=== PATIENT | male | born 1965 | race Caucasian/White ===

== ENCOUNTER → 2016-10-08 | Outpatient (CLI) | payer OTHER ==
[2016-10-08 08:37] LABS: CHLORIDE,CL 112 mmol/L (98-110); SODIUM,NA 144 mmol/L (136-146)
== END ==
LOC: MW.CHRC 07:33
PROVIDERS: ATTEND Family Medicine
DX: R68.82 Decreased libido (principal)
CPT/HCPCS: 80053; 80061; 83001; 83002; 84402; 84403; 84439; 84443; 85025; G0103; 36415

== ENCOUNTER 2017-10-31 06:56 | Emergency (ER) | payer OTHER ==
[2017-10-31] MEDS ORDERED: Ondansetron 4 MG/2 ML SDV IVPUSH ONE ×2 (07:22→07:37)
[2017-10-31] MEDS ORDERED: Sodium Chloride 0.9% 10 ML Syringe FLUSH PRN (07:37)
[2017-10-31] MEDS ORDERED: Sodium Chloride 0.9% 2.5 ML Syringe FLUSH PRN (07:37)
[2017-10-31] MEDS ORDERED: Sodium Chloride 0.9% 1,000 ML IV ONE (07:37)
[2017-10-31] MEDS ORDERED: Morphine 4 MG/ML Syringe IVPUSH ONE (07:37)
--- NOTE | 2017-10-31 07:51 | EDM.PDOC ---
ED HPI GENERAL MEDICAL PROBLEM - General Chief Complaint: Headache Stated Complaint: HEADACHE/NUMBNESS RT LEG Time Seen by Provider: 10/31/17 07:34 - History of Present Illness INITIAL COMMENTS - FREE TEXT/NARRATIVE: HISTORY AND PHYSICAL: History of present illness: Patient 51-year-old white male presents with concern of headache this started last night frontal he also complained of some anxiety and associated chest pain this is vaguely described without associated shortness of breath diaphoresis nausea or vomiting he also states he felt like his right right foot was numb yesterday when this occurred he denies any numbness weakness at this time there' s been no visual disturbance was no trauma. Review of systems: As per history of present illness and below otherwise all systems reviewed and negative. Past medical history: As per history of present illness and as reviewed below otherwise noncontributory. Surgical history: As per history of present illness and as reviewed below otherwise noncontributory. Social history: No reported history of drug or alcohol abuse. Family history: As per history of present illness and as reviewed below otherwise noncontributory. Physical exam: HEENT: Atraumatic, normocephalic, pupils reactive, negative for conjunctival pallor or scleral icterus, mucous membranes moist, throat clear, neck supple, nontender, trachea midline. Lungs: Clear to auscultation, breath sounds equal bilaterally, chest nontender. Heart: S1S2, regular, negative for clicks, rubs, or JVD. Abdomen: Soft, nondistended, nontender. Negative for masses or hepatosplenomegaly. Negative for costovertebral tenderness. Pelvis: Stable nontender. Genitourinary: Deferred. Rectal: Deferred. Extremities: Atraumatic, negative for cords or calf pain. Neurovascular unremarkable. Neuro: Awake, alert, oriented. Cranial nerves II through XII unremarkable. Cerebellum unremarkable. Motor and sensory unremarkable throughout. Exam nonfocal. Diagnostics: CBC CMP troponin PT/INR chest x-ray EKG CT brain urine drug screen Therapeutics: IV O2 monitor morphine sulfate 2 mg IV Zofran 4 mg IV Impression: #1 cephalgia #2 atypical chest pain Definitive disposition and diagnosis as appropriate pending reevaluation and review of above. head Pain Score (Numeric/FACES): 9 - Related Data Allergies Allergy/AdvReac Type Severity Reaction Status Date / Time No Known Allergies Allergy Verified 10/31/17 07:07 Home Meds: Home Meds . [No Known Home Meds] 10/31/17 [History] Past Medical History - Past Health History Medical/Surgical History: Denies Medical/Surgical History Social & Family History - Family History Family Medical History: Noncontributory - Tobacco Use Smoking Status *Q: Current Every Day Smoker Years of Tobacco use: 10 Packs/Tins Daily: 1 - Recreational Drug Use Recreational Drug Use: No ED ROS GENERAL - Review of Systems Review Of Systems: ROS reveals no pertinent complaints other than HPI. ED EXAM, GENERAL - Physical Exam Exam: See Below (See dictation) Course - Vital Signs Last Recorded V/S: Last Vital Signs Temp 36.7 C 10/31/17 06:56 Pulse 86 10/31/17 06:56 Resp 18 10/31/17 06:56 BP 166/95 H 10/31/17 06:56 Pulse Ox 98 10/31/17 06:56 - Orders/Labs/Meds Orders: Active Orders 24 hr Category Date Time Status Cardiac Monitoring [RC] . DIRECTED Care 10/31/17 07:34 Active EKG Documentation Completion [RC] STAT Care 10/31/17 07:34 Active Pulse Oximetry [RC] ASDIRECTED Care 10/31/17 07:35 Active Chest 1V Frontal [CR] Stat Exams 10/31/17 07:37 Ordered Head wo Cont [CT] Stat Exams 10/31/17 07:37 Ordered COMPREHENSIVE METABOLIC PN,CMP [CHEM] Stat Lab 10/31/17 07:52 Received DRUG SCREEN, URINE [URCHEM] Stat Lab 10/31/17 07:36 Ordered TROPONIN I [CHEM] Stat Lab 10/31/17 07:52 Received UA W/MICROSCOPIC [URIN] Stat Lab 10/31/17 07:36 Ordered Sodium Chloride 0.9% [Normal Saline] 1,000 ml Med 10/31/17 07:37 Active IV STAT Sodium Chloride 0.9% [Saline Flush] Med 10/31/17 07:37 Active 10 ml FLUSH ASDIRECTED PRN Sodium Chloride 0.9% [Saline Flush] Med 10/31/17 07:37 Active 2.5 ml FLUSH ASDIRECTED PRN Saline Lock Insert [OM.PC] Stat Oth 10/31/17 07:34 Ordered Medication Orders Sodium Chloride (Normal Saline) 1,000 mls @ 999 mls/hr IV STAT ONE Stop: 10/31/17 08:37 Last Admin: 10/31/17 07:55 Dose: 999 mls/hr Sodium Chloride (Saline Flush) 10 ml FLUSH ASDIRECTED PRN PRN Reason: Keep Vein Open Last Admin: 10/31/17 07:57 Dose: 10 ml Sodium Chloride (Saline Flush) 2.5 ml FLUSH ASDIRECTED PRN PRN Reason: Keep Vein Open Labs: Laboratory Tests 10/31/17 10/31/17 10/31/17 Range/Units 07:52 07:52 07:52 WBC 18.52 H (4.0-11.0) K/uL RBC 6.03 H (4.50-5.90) M/uL Hgb 17.9 H (13.0-17.0) g/dL Hct 50.5 H (38.0-50.0) % MCV 83.7 (80.0-98.0) fL MCH 29.7 (27.0-32.0) pg MCHC 35.4 (31.0-37.0) g/dL RDW Std Deviation 42.9 (28.0-62.0) fl RDW Coeff of Minh 14 (11.0-15.0) % Plt Count 200 (150-400) K/uL MPV 9.20 (7.40-12.00) fL Neut % (Auto) 90.7 H (48.0-80.0) % Lymph % (Auto) 5.6 L (16.0-40.0) % [place] % (Auto) 3.5 (0.0-15.0) % Eos % (Auto) 0.1 (0.0-7.0) % Baso % (Auto) 0.1 (0.0-1.5) % Neut # (Auto) 16.8 H (1.4-5.7) K/uL Lymph # (Auto) 1.0 (0.6-2.4) K/uL [place] # (Auto) 0.7 (0.0-0.8) K/uL Eos # (Auto) 0.0 (0.0-0.7) K/uL Baso # (Auto) 0.0 (0.0-0.1) K/uL Nucleated RBC % 0.0 /100WBC Nucleated RBCs # 0 K/uL INR 1.16 ABG Carboxyhemoglobin 1.5 (0-15) % Meds: Medications Generic Name Dose Route Start Last Admin Trade Name Freq PRN Reason Stop Dose Admin Sodium Chloride 1,000 mls @ 999 mls/hr 10/31/17 07:37 10/31/17 07:55 Normal Saline IV 10/31/17 08:37 999 mls/hr STAT ONE Administration Sodium Chloride 10 ml 10/31/17 07:37 10/31/17 07:57 Saline Flush FLUSH 10 ml ASDIRECTED PRN Administration Keep Vein Open Sodium Chloride 2.5 ml 10/31/17 07:37 Saline Flush FLUSH ASDIRECTED PRN Keep Vein Open Discontinued Medications Generic Name Dose Route Start Last Admin Trade Name Kurtis PRN Reason Stop Dose Admin Morphine Sulfate 2 mg 10/31/17 07:37 10/31/17 07:56 Morphine IVPUSH 10/31/17 07:38 2 mg ONETIME ONE Administration Ondansetron HCl 4 mg 10/31/17 07:37 10/31/17 07:56 Zofran IVPUSH 10/31/17 07:38 4 mg ONETIME ONE Administration Departure - Departure Time of Disposition: 08:16 Disposition: DC/Tfer to Acute Hospital 02 Condition: Serious Clinical Impression: Intracranial hemorrhage - Discharge Information Referrals: PCP,None [Primary Care Provider] - Forms: ED Department Discharge - My Orders Last 24 Hours: My Active Orders 10/31/17 07:34 Cardiac Monitoring [RC] . DIRECTED EKG Documentation Completion [RC] STAT Saline Lock Insert [OM.PC] Stat 10/31/17 07:35 Pulse Oximetry [RC] ASDIRECTED 10/31/17 07:36 DRUG SCREEN, URINE [URCHEM] Stat UA W/MICROSCOPIC [URIN] Stat 10/31/17 07:37 Chest 1V Frontal [CR] Stat Head wo Cont [CT] Stat Sodium Chloride 0.9% [Normal Saline] 1,000 ml IV STAT Sodium Chloride 0.9% [Saline Flush] 10 ml FLUSH ASDIRECTED PRN Sodium Chloride 0.9% [Saline Flush] 2.5 ml FLUSH ASDIRECTED PRN 10/31/17 07:52 COMPREHENSIVE METABOLIC PN,CMP [CHEM] Stat TROPONIN I [CHEM] Stat - Assessment/Plan Last 24 Hours: My Active Orders 10/31/17 07:34 Cardiac Monitoring [RC] . DIRECTED EKG Documentation Completion [RC] STAT Saline Lock Insert [OM.PC] Stat 10/31/17 07:35 Pulse Oximetry [RC] ASDIRECTED 10/31/17 07:36 DRUG SCREEN, URINE [URCHEM] Stat UA W/MICROSCOPIC [URIN] Stat 10/31/17 07:37 Chest 1V Frontal [CR] Stat Head wo Cont [CT] Stat Sodium Chloride 0.9% [Normal Saline] 1,000 ml IV STAT Sodium Chloride 0.9% [Saline Flush] 10 ml FLUSH ASDIRECTED PRN Sodium Chloride 0.9% [Saline Flush] 2.5 ml FLUSH ASDIRECTED PRN 10/31/17 07:52 COMPREHENSIVE METABOLIC PN,CMP [CHEM] Stat TROPONIN I [CHEM] Stat
[2017-10-31 08:20] LABS: CHLORIDE,CL 106 mmol/L (98-107); SODIUM,NA 140 mmol/L (136-148)
--- NOTE | 2017-11-01 13:52 | CT ---
EXAM DATE: 10/31/17 PATIENT'S AGE: 51 Patient: ARPAN ALVAREZ Facility: [place], [place] Site . Site : 1965 Study: CT Head STROKE PROTOCOL [id number]/20/2018 8:15:31 AM Ordering Physician: Yvonne Sheikh Final Report: INDICATION: severe headache, leg numbness TECHNIQUE: Noncontrast scans obtained from the foramen magnum through the vertex. COMPARISON: None. FINDINGS: 1. There is a moderate amount of subarachnoid hemorrhage in the basal cisterns and sylvian fissures, left greater than right. A ruptured aneurysm is suspected. 2. No infarcts or masses identified. Mild prominence of the ventricles. No intraventricular hemorrhage is seen. No midline shift. 3. No skull fractures. 4. 8 mm cyst or polyp in the right maxillary sinus. Mild membrane thickening in the paranasal sinuses. No air-fluid levels. Mastoid air cells are clear. 5. Metallic suture along the lateral wall right orbit. IMPRESSION: Moderate subarachnoid hemorrhage. Findings were called to [facility] emergency room at 8:20 a.m. Dictated by Gerson Leach MD @ 10/31/2017 8:28:28 AM Dictated by: Gerson Leach MD @ 10/31/2017 08:28:37 (Electronic Signature) Report Signed by Proxy. MARIANNE
--- NOTE | 2017-11-01 13:52 | CR ---
EXAM DATE: 10/31/17 PATIENT'S AGE: 51 Patient: ARPAN ALVAREZ Facility: [place], [place] Site . Site : 1965 Study: XRay Chest [id number]/20/2018 8:17:26 AM Ordering Physician: Yvonne Sheikh Final Report: INDICATION: head ache, sob TECHNIQUE: AP chest film submitted. COMPARISON: None. FINDINGS: Heart size and pulmonary vasculature within normal limits. Lung spann are clear. Old healed fracture of the right posterior 5th rib. Mild ectasia of the thoracic aorta. IMPRESSION: No active disease. Dictated by Gerson Leach MD @ 10/31/2017 8:29:53 AM Dictated by: Gerson Leach MD @ 10/31/2017 08:29:58 (Electronic Signature) Report Signed by Proxy. [facility] HOSPITALJonas
== END 2017-10-31 08:44 ==
LOC: MW.ED 06:56
DX: I62.9 Nontraumatic intracranial hemorrhage, unspecified (principal); R07.89 Other chest pain; F17.210 Nicotine dependence, cigarettes, uncomplicated; F41.9 Anxiety disorder, unspecified
CPT/HCPCS: 36415; 70450; 71045; 80053; 80305; 81001; 82375; 84484; 85025; 85610; 93005; J2270; J2405; J7040; 96361; 96374; 96375; 99285; 99285-25